=== PATIENT | male | born 1990 | race Caucasian/White ===

== ENCOUNTER 2019-10-18 21:51 | Emergency (ER) | payer SELFPAY ==
[2019-10-18 22:03] VITALS: BP 155/91; TEMP 97.1
[2019-10-18] MEDS ORDERED: ALBUTEROL SULFATE NEBS (ED DISPENSE) 2.5 MG/3 ML VIAL NEB PRN (22:07)
[2019-10-18] MEDS ORDERED: IPRATROPIUM BROMIDE NEBS 0.5 MG/2.5 ML VIAL NEB ONE (22:07)
[2019-10-18] MEDS ORDERED: METOCLOPRAMIDE HCL 5 MG TAB PO ONE (22:11)
--- NOTE | 2019-10-18 22:17 | ED.PDOC ---
History of Present Illness - General Chief Complaint: Respiratory Problem Stated Complaint: cough, difficulty breathing, Time Seen by Provider: 10/18/19 22:07 Additional Information: Patient with chief complaint of cough 2 weeks. Patient is a smoker and complains of a dry cough. Patient typically does not have a cough and he indicates that the cough is not getting any worse but persists and causes post- tussive emesis. Patient denies intrinsic vomiting, he indicates he only vomits after a coughing spell. Patient denies fever, chills, chest pain, shortness of breath. 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 Patient denies history of heart disease or lung disease. His cough is not painful. Patient indicates he was seen at another ED 3 days ago and was diagnosed with gastritis and given a prescription for antiemetics but chest x- ray was not performed. - History of Present Illness Allergies/Adverse Reactions: Allergies NO KNOWN ALLERGY Allergy (Verified 10/18/19 22:17) Home Medications: Ambulatory Orders Albuterol Inhaler [Ventolin Hfa Inhaler] 2 puff INH Q6H #1 inh 10/18/19 Azithromycin Tab [Zithromax Tab] 250 mg PO QDAC 5 Days tab 10/18/19 guaiFENesin/DEXTROMETH SYRUP [Robitussin Dm] 10 ml PO Q6H PRN #240 ml 10/18/19 predniSONE 40 mg PO DAILY #10 tab 10/18/19 Review of Systems - Review of Systems Constitutional: States: no symptoms reported. Denies: chills, fever EENTM: States: no symptoms reported Respiratory: States: see HPI, cough. Denies: short of breath, wheezing Cardiology: States: no symptoms reported. Denies: chest pain, palpitations Gastrointestinal/Abdominal: States: see HPI. Denies: abdominal pain Genitourinary: States: no symptoms reported Musculoskeletal: States: no symptoms reported Skin: States: no symptoms reported. Denies: rash Neurological: States: no symptoms reported All other Systems: Reviewed and Negative Past Medical History (General) - Patient Medical History Hx Asthma: No Hx of COPD: No Hx Cardiac Disorders: No Hx Diabetes: No Surgical History: no surgical history - Vaccination History Hx Tetanus, Diphtheria Vaccination: Yes Hx Influenza Vaccination: No Hx Pneumococcal Vaccination: No - Social History Hx Tobacco Use: Yes Hx Alcohol Use: No Family Medical History - Family History Father Family History: Unknown Physical Exam - Physical Exam General Appearance: Alert, Comfortable, No apparent distress, Well Developed, Well Nourished ENT Exam: normal ENT inspection Neck: full range of motion, supple Respiratory: lungs clear, normal breath sounds, no respiratory distress, no accessory muscle use, other - occasional dry cough Cardiovascular/Chest: normal peripheral pulses, regular rate, rhythm, no edema, no gallop Gastrointestinal/Abdominal: normal bowel sounds, non tender, soft, no organomegaly Extremity: normal inspection Neurologic: no motor/sensory deficits, alert, normal mood/affect, oriented x 3 Skin Exam: normal color, warm/dry Progress - Progress Progress: 10/18/19 22:54 Patient feeling slightly better status post nebulizer. Patient's chest x-ray is unremarkable and clinically patient with pneumonitis/possible atypical pneumonia. Will DC with azithromycin, prednisone, albuterol inhaler and Robitussin and patient to follow up with PCP. Vital signs stable, patient NAD and looks clinically well, and I believe is safe for discharge with outpatient follow-up. Follow-up instructions, discharge instructions and return to ED precautions discussed with patient. Patient voices understanding and willingness to comply with instructions. All laboratory and radiographic results have been discussed with the patient, and all questions answered. Patient is happy with plan. Departure - Departure Clinical Impression: Acute bronchospasm, Pneumonitis Time of Disposition: 22:47 Disposition: Discharge to Home or Self Care Condition: Good Departure Forms: ED Discharge - Pt. Copy, Patient Portal Self Enrollment Instructions: Acute Bronchitis Referrals: Barb Matthews DO [Primary Care Provider] - 1-5 Days Prescriptions: Albuterol Inhaler [Ventolin Hfa Inhaler] 2 puff INH Q6H #1 inh Azithromycin Tab [Zithromax Tab] 250 mg PO QDAC 5 Days tab guaiFENesin/DEXTROMETH SYRUP [Robitussin Dm] 10 ml PO Q6H PRN #240 ml PRN Reason: Cough predniSONE 40 mg PO DAILY #10 tab Home Medications: Ambulatory Orders Albuterol Inhaler [Ventolin Hfa Inhaler] 2 puff INH Q6H #1 inh 10/18/19 Azithromycin Tab [Zithromax Tab] 250 mg PO QDAC 5 Days tab 10/18/19 guaiFENesin/DEXTROMETH SYRUP [Robitussin Dm] 10 ml PO Q6H PRN #240 ml 10/18/19 predniSONE 40 mg PO DAILY #10 tab 10/18/19
[2019-10-18] MEDS ORDERED: IPRATROPIUM/ALBUTEROL 3 ML VIAL NEB ONE (22:21)
--- NOTE | 2019-10-18 22:34 | RAD ---
EXAM DESCRIPTION: Chest,2 Views CLINICAL HISTORY:29 years Male, cough Comparison: None FINDINGS: No focal lung consolidation. No pleural effusion. No pneumothorax. Cardiac and mediastinal silhouette is unremarkable. No acute osseous abnormality. Soft tissues are unremarkable. IMPRESSION: No acute findings. No focal lung consolidation. Electronically signed by: Jeffrey Garcia MD 10/18/2019 10:32 PM [employer]
[2019-10-18] MEDS ORDERED: DEXAMETHASONE INJ 10 MG/ML VIAL IM ONE (22:38)
[2019-10-18 22:50] VITALS: O2SAT 98
== END 2019-10-18 22:55 | disposition home or self-care (01) ==
LOC: ER 21:51
DX: J18.9 Pneumonia, unspecified organism (principal); J98.01 Acute bronchospasm; F17.200 Nicotine dependence, unspecified, uncomplicated
CPT/HCPCS: 71046; 94640; J1100; J7620